=== PATIENT | female | born 1995 | race Caucasian/White ===

== ENCOUNTER → 2023-12-01 | Outpatient (CLI) | payer OTHER ==
[2023-12-01 09:05] LABS: Basophils # (auto) 0 10 ^3/uL (0-0.2); Basophils % (auto) 0.7 % (0.0-2.0); Eosinophils # (auto) 0.1 10 ^3/uL (0-0.8); Eosinophils % (auto) 1.5 % (0.0-7.0); Hematocrit 40.4 % (36.0-46.0); Hemoglobin 13.7 g/dL (12.2-16.2); Lymphocytes # (auto) 2.1 10 ^3/uL (0.4-5.4); Lymphocytes % (auto) 33.3 % (10.0-50.0); Mean Corpuscular Hemoglobin 29.7 pg (28.0-32.0); Mean Corpuscular Hgb Conc. 33.8 g/dL (32.0-36.0); Mean Corpuscular Volume 87.9 fL (80.0-100.0); Monocytes # (auto) 0.6 10 ^3/uL (0-1.3); Monocytes % (auto) 9.5 % (0.0-12.0); Neutrophils # (auto) 3.4 10 ^3/uL (1.6-8.6); Nucleated Red Blood Cells % 0.2 %; Platelet Count (auto) 288 10^3/uL (140-450); Red Blood Cells 4.59 10^6/uL (4.0-5.20); Red Cell Distribution Width 14.3 % (11.8-14.3); White Blood Cell 6.2 10^3/uL (4.4-10.8)
[2023-12-01 09:40] LABS: Urine Bacteria FEW /hpf (None Seen); Urine Blood Negative /uL (Negative); Urine Clarity Turbid (Clear); Urine Color Yellow (Yellow); Urine Mucus FEW (None Seen); Urine Protein, UAD 1+ (Negative); Urine Specific Gravity 1.031 (1.001-1.035); Urine Urobilinogen Normal (Negative); Urine WBC 2 /hpf (0 - 5); Urine pH 5.5 (5.0-9.0)
[2023-12-01 09:49] LABS: Alanine Aminotransferase 52 U/L (7-40); Albumin 4.7 g/dL (3.2-4.8); Alkaline Phosphatase 80 U/L (46-116); Anion Gap 6 (5-15); Aspartate Aminotransferase 33 U/L (13-40); BUN/Creatinine Ratio 7.5 (10.0-20.0); Blood Urea Nitrogen 7 mg/dL (9-23); Calcium 9.7 mg/dL (8.7-10.4); Carbon Dioxide 23 mmol/L (20-31); Chloride 110 mmol/L (98-107); Glucose 98 mg/dL (74-106); LDL Cholesterol 104 mg/dL (< 100); Potassium 4.2 mmol/L (3.5-5.1); Sodium 139 mmol/L (136-145); Triglycerides 60 mg/dL (< 150)
[2023-12-01 09:50] LABS: Bilirubin, Total 0.6 mg/dL (0.2-1.0); Cholesterol 156 mg/dL (< 200); HDL Cholesterol 45 mg/dL (40-59); Total Protein 7.6 g/dL (5.7-8.2)
== END | disposition home or self-care (01) ==
LOC: LAB 08:43
PROVIDERS: ATTEND Nurse Practitioner
DX: I10 Essential (primary) hypertension (principal); E78.5 Hyperlipidemia, unspecified; E03.9 Hypothyroidism, unspecified; R73.9 Hyperglycemia, unspecified
CPT/HCPCS: 36415; 80053; 80061; 81001; 83036; 84443; 85025

== ENCOUNTER → 2024-02-13 | Outpatient (CLI) | payer OTHER ==
[2024-02-13 10:16] LABS: Urine Bacteria None Seen /hpf (None Seen)
[2024-02-13 10:45] LABS: Urine Blood Negative /uL (Negative); Urine Clarity Clear (Clear); Urine Color Light-Yellow (Yellow); Urine Protein, UAD Negative (Negative); Urine Specific Gravity 1.015 (1.001-1.035); Urine Urobilinogen Normal (Negative); Urine WBC 1 /hpf (0 - 5); Urine pH 6.5 (5.0-9.0)
[2024-02-13 10:56] LABS: Alanine Aminotransferase 18 U/L (7-40); Albumin 4.5 g/dL (3.2-4.8); Alkaline Phosphatase 69 U/L (46-116); Anion Gap 6 (5-15); Aspartate Aminotransferase 14 U/L (13-40); BUN/Creatinine Ratio 8.8 (10.0-20.0); Bilirubin, Total 0.6 mg/dL (0.2-1.0); Calcium 10.1 mg/dL (8.7-10.4); Carbon Dioxide 26 mmol/L (20-31); Glucose 87 mg/dL (74-106); Potassium 4.1 mmol/L (3.5-5.1); Sodium 141 mmol/L (136-145)
[2024-02-13 10:57] LABS: Total Protein 7.7 g/dL (5.7-8.2)
[2024-02-13 11:03] LABS: Chloride 109 mmol/L (98-107)
[2024-02-13 11:04] LABS: Blood Urea Nitrogen 8 mg/dL (9-23)
== END | disposition home or self-care (01) ==
LOC: LAB 10:04
PROVIDERS: ATTEND Nurse Practitioner
DX: I10 Essential (primary) hypertension (principal); E78.5 Hyperlipidemia, unspecified
CPT/HCPCS: 36415; 80053; 81001

== ENCOUNTER → 2024-05-16 | Outpatient (CLI) | payer OTHER | END | disposition home or self-care (01) | LOC: LAB 14:57 | PROVIDERS: ATTEND Dermatology | DX: D48.5 Neoplasm of uncertain behavior of skin (principal) ==

== ENCOUNTER 2024-12-26 06:13 | Day surgery (SDC) | payer OTHER ==
[2024-12-23 09:11] LABS: Hematocrit 42.2 % (36.0-46.0); Hemoglobin 14.2 g/dL (12.2-16.2); Mean Corpuscular Hemoglobin 29.8 pg (28.0-32.0); Mean Corpuscular Volume 88.3 fL (80.0-100.0); Nucleated Red Blood Cells % 0.0 %
[2024-12-23 09:23] LABS: Urine Protein, UAD Negative (Negative)
[2024-12-23 09:36] LABS: INR 0.97 (0.9-1.15); Partial Thromboplastin Time 27.3 SEC (24.5-34.5); Prothrombin Time 10.3 sec (9.3-11.8)
[2024-12-23 09:59] LABS: Alanine Aminotransferase 17 U/L (7-40); Albumin 4.6 g/dL (3.2-4.8); Alkaline Phosphatase 72 U/L (46-116); Anion Gap 10 (5-15); BUN/Creatinine Ratio 9.6 (10.0-20.0); Calcium 9.4 mg/dL (8.7-10.4); Carbon Dioxide 26 mmol/L (20-31); Chloride 105 mmol/L (98-107); Glucose 91 mg/dL (74-106); Potassium 4.4 mmol/L (3.5-5.1); Sodium 141 mmol/L (136-145); Total Protein 8.2 g/dL (5.7-8.2)
[2024-12-23 10:00] LABS: Bilirubin, Total 0.5 mg/dL (0.2-1.0)
[2024-12-23 10:23] LABS: Blood Urea Nitrogen 9 mg/dL (9-23)
[~2024-12-26] VITALS: Ht 165.1 cm; Wt 75.3 kg
[~2024-12-26 06:13] MED LIST: [UNRECOGNIZED DRUG - CODE] VA
[2024-12-26] MEDS ORDERED: fentaNYL CITRATE 100 MCG/2 ML VL ONE (07:01)
[2024-12-26] MEDS ORDERED: HYDROmorphone HCL 2 MG/ML VL/or syr ONE (07:01)
[2024-12-26] MEDS ORDERED: PROPOFOL 10 MG/ML 20 ML IV ONE (07:05)
[2024-12-26] MEDS: ceFAZolin 2 GM/D5W50ml 50 ML IV ONE (07:30)
[2024-12-26] MEDS ORDERED: ONDANSETRON HCL 4 MG/2 ML VIAL ONE (07:44)
[2024-12-26] MEDS: LIDOCAINE W/ EPINEPHRINE 1% 20ML VIAL ONE (08:18)
[2024-12-26 08:29] VITALS: PULSE 86; RESP 12; TEMP 97.8; O2SAT 98
--- NOTE | 2024-12-26 08:29 | DVHOP2 ---
Operative Report - 2 Report Details Date: 12/26/24 Preop Diagnosis: Right calf mass Postop Diagnosis: Right calf lipomatous mass Surgeon: Pantera Natarajan MD Anesthesiologist: Dr. Preciado Anesthesia: General Consent: The patient was informed of the risks and benefits of the procedure. These include but are not limited to complications of anesthesia, postoperative infection, incomplete relief of symptoms, recurrence of symptoms, damage to blood vessels, nerves and tendons, deep venous thrombosis, pulmonary embolism and possible need for repeat surgery in the future. Complications: None Estimated Blood Loss: 5 mL Findings: Lipomatous lobulated mass approximately 2-3 cm in diameter Indications for Surgery: Right calf mass causing discomfort esthetic concerns Name of Procedure Performed Right calf mass excision Procedure Details Procedure Details: Upon arriving to the operating room the patient was transferred in the operating table and placed in the supine position with arms extended. General endotracheal anesthesia was induced. Patient was then frog-legged on the right lower extremity, supported with a bolster. Time-out was observed. Patient was prepped and draped in the standard sterile surgical fashion with chlorhexidine. I then directed my attention to the previously marked site of the right posterom edial calf. I then made an incision along Langerhans lines. Incision was carried down to subcutaneous tissue. Once in the subcutaneous tissue I immediately noted a bulge of lobulated fat. I then proceeded to dissect around the lobulated fat mass and wants the mass was completely free from surrounding tissue, it was only attached in its deep aspect to the fascia of the gastrocne mius muscle. I freed it off the muscle fascia utilizing Metzenbaum scissors, a small strip of fascia was taken with the specimen also. Mass was passed off as specimen and it was approximately 2-3 cm in diameter. I then proceeded to look and feel for any residual mass, none found. Wound was then irrigated. Wound was hemostatic. I then closed the gastrocnemius muscle fascia with running 3-0 Vicryl. I then approximated the deep dermis with interrupted 3-0 Vicryl. I then closed the skin with 4-0 Monocryl in subcuticular fashion. All counts were complete and correct at the end of the procedure. 0.25% Marcaine was used as local anesthetic. Dermabond was placed over the incision. Incision was dressed with 2 x 2 gauze and Tegaderm. Patient tolerated the procedure well and was transferred to PACU in stable condition. Specimen: Lipomatous mass Condition Stable Disposition Home PANTERA ESPINOSA MD Dec 26, 2024 08:29
[2024-12-26] MEDS ORDERED: ONDANSETRON HCL 4 MG/2 ML VIAL IV PRN (08:45)
[2024-12-26] MEDS ORDERED: ACETAMINOPHEN IV 1000 MG/100ML (10MG/ML) IV PRN (08:45)
[2024-12-26] MEDS ORDERED: HYDROmorphone HCL 2 MG/ML VL/or syr IV PRN (08:45)
[2024-12-26 09:15] VITALS: BP 126/65; PULSE 76; RESP 18; O2SAT 99
== END 2024-12-26 09:28 | disposition home or self-care (01) ==
LOC: SUR 06:13
PROVIDERS: ATTEND Student in an Organized Health Care Education/Training Program
DX: D17.23 Benign lipomatous neoplasm of skin and subcutaneous tissue of right leg (principal); F41.9 Anxiety disorder, unspecified; F43.10 Post-traumatic stress disorder, unspecified; Z79.899 Other long term (current) drug therapy; Z98.890 Other specified postprocedural states; Z87.891 Personal history of nicotine dependence
CPT/HCPCS: 27619; 36415; 80053; 81001; 81025; 85025; 85610; 85730; J0690; J1100; J1171; J2405; J2704; J3010